=== PATIENT | male | born 1940 | race African-American/Black ===

== ENCOUNTER 2020-03-28 18:52 | Emergency (ER) | payer MEDICARE, OTHER ==
[2020-03-28 19:19] VITALS: BP 187/56; PULSE 63
--- NOTE | 2020-03-28 19:27 | EDM.PDOC ---
ED HPI GENERAL MEDICAL PROBLEM - General Chief Complaint: Bite:Animal, Insect Stated Complaint: TICK BITE Time Seen by Provider: 03/28/20 19:27 Source of Information: Reports: Patient History Limitations: Reports: No Limitations - History of Present Illness INITIAL COMMENTS - FREE TEXT/NARRATIVE: Erik presents today for complaints of tick bite to left flank. He states he has been doing yard work the past week. He is not sure how long the tick has been attached. Tick brought in, identified at [facility] 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 - Infectious Disease History Infectious Disease History: Reports: Chicken Pox, Measles, Mumps - Past Surgical History GI Surgical History: Reports: Cholecystectomy ED ROS GENERAL - Review of Systems Review Of Systems: See Below Constitutional: Reports: No Symptoms Respiratory: Reports: No Symptoms Cardiovascular: Reports: No Symptoms Musculoskeletal: Reports: No Symptoms Skin: Reports: Lesions, Other (tick bite to left flank) Neurological: Reports: No Symptoms Psychiatric: Reports: No Symptoms Hematologic/Lymphatic: Reports: No Symptoms Immunologic: Reports: No Symptoms ED EXAM, ANIMAL BITE - Physical Exam Exam: See Below Exam Limited By: No Limitations General Appearance: Alert, WD/WN, No Apparent Distress Respiratory/Chest: No Respiratory Distress, Lungs Clear, Normal Breath Sounds, No Accessory Muscle Use, Chest Non-Tender Cardiovascular: Normal Peripheral Pulses, Regular Rate, Rhythm, No Edema, No Gallop, No Murmur, No Rub Back Exam: Normal Inspection, Full Range of Motion, Other (circular erythematous lesion to left flank 3.5cm). No: CVA Tenderness (R), CVA Tenderness (L) Extremities: Normal Inspection, Normal Range of Motion, Non-Tender, No Pedal Edema, Normal Capillary Refill Skin Exam: Normal Color, Warm/Dry, Other (4cm circular erythematous lesion left flank) Lymphatic: No Adenopathy Course - Vital Signs Last Recorded V/S: Last Vital Signs Temp 36.3 C 03/28/20 19:30 Pulse 63 03/28/20 19:30 Resp 16 03/28/20 19:30 BP 187/56 H 03/28/20 19:30 Pulse Ox 95 03/28/20 19:30 Departure - Departure Time of Disposition: 19:27 Disposition: Home, Self-Care 01 Condition: Good Clinical Impression: Tick bite of flank - Discharge Information *PRESCRIPTION DRUG MONITORING PROGRAM REVIEWED*: Not Applicable *COPY OF PRESCRIPTION DRUG MONITORING REPORT IN PATIENT JOHNNIE: Not Applicable Instructions: Insect Bite, Adult, [id number] Referrals: Vincent Veliz MD [Primary Care Provider] - Forms: ED Department Discharge Additional Instructions: Take doxycycline 100mg by mouth BID for 14 days due to deer tick exposure for unknown amount of time. Follow up with primary as needed. Sepsis Event Note - Focused Exam Vital Signs: Vital Signs Temp Pulse Resp BP Pulse Ox 03/28/20 19:30 36.3 C 63 16 187/56 H 95 03/28/20 19:17 36.3 C 63 16 187/56 H 95 Date Exam was Performed: 03/28/20 Time Exam was Performed: 19:38 - Assessment/Plan Assessment:: tick bite of flank Plan: Take doxycycline 100mg by mouth BID for 14 days due to deer tick exposure for unknown amount of time. Follow up with primary as needed.
== END 2020-03-28 19:52 | disposition home or self-care (01) ==
LOC: JP.ED 18:52
DX: S30.861A Insect bite (nonvenomous) of abdominal wall, initial encounter (principal); Z79.82 Long term (current) use of aspirin; Z79.899 Other long term (current) drug therapy; W57.XXXA Bitten or stung by nonvenomous insect and other nonvenomous arthropods, initial encounter
CPT/HCPCS: 99282; 99283